=== PATIENT | male | born 1965 | race Caucasian/White ===

== ENCOUNTER → 2017-06-25 | Outpatient (CLI) | payer OTHER ==
[~2017-06-25] MED LIST: AMLODIPINE BESY10 MG; ASPIRIN81 M2; FISH OIL 1,2001 EAC4; FLOMAX0.4 MG PO; GLUCOTROL5 MG PO; LEXAPRO 10 MG T10 M2; PERCOCET 5-3251 EACH PO; PREDNISONE 20 M20 MG PO; PRINZIDE 20-121 EACH; VALIUM5 MG PO; VITCB500GO
== END ==
LOC: RAD 12:17
DX: R05 Cough (principal); R50.9 Fever, unspecified

== ENCOUNTER → 2018-12-30 | Outpatient (CLI) | payer OTHER | LOC: ULTRA 08:00 | DX: K76.0 Fatty (change of) liver, not elsewhere classified (principal) ==

== ENCOUNTER → 2019-03-03 | Outpatient (CLI) | payer OTHER | LOC: CAT 10:45 | DX: Z13.6 Encounter for screening for cardiovascular disorders (principal); E78.00 Pure hypercholesterolemia, unspecified; I25.10 Atherosclerotic heart disease of native coronary artery without angina pectoris ==

== ENCOUNTER → 2019-04-11 | Outpatient (CLI) | payer OTHER | LOC: CAT 04-08 09:52 → MRI 10:47 | DX: I65.23 Occlusion and stenosis of bilateral carotid arteries (principal); R79.89 Other specified abnormal findings of blood chemistry ==

== ENCOUNTER → 2019-07-03 | Outpatient (CLI) | payer OTHER ==
[~2019-07-03] VITALS: Ht 177.8 cm; Wt 136.0 kg
[~2019-07-03] MED LIST changes: +ALL DAY ALLERGY10 M3 PO; +LASIX 40 MG TAB40 MG PO; +NIFEDIPINE ER90 MG PO; +NITROSTAT0.4 M1 SUBLING; +PRINIVIL20 M1 PO; +SIMVASTATIN80 MG PO
[2019-07-03 08:18] VITALS: BP 161/82
[2019-07-03 08:32] LABS: HEMATOCRIT 46.6 % (42.0-52.0); HEMOGLOBIN 15.5 gm/dL (14.0-18.0); MCH 28.4 pg (26.0-34.0); MCHC 33.4 g/dL (28.0-37.0); MCV 85.1 fL (80.0-100.0); RBC 5.48 mil/uL (4.50-6.00); RDW 13.6 % (10.5-14.5)
[2019-07-03 08:39] LABS: CALCIUM 9.3 mg/dL (8.5-10.1); CREATININE 0.9 mg/dL (0.7-1.3); POTASSIUM 3.9 mmol/L (3.5-5.1)
--- NOTE | 2019-07-03 17:25 | EKG ---
[address] [address] ELECTROCARDIOGRAM REPORT Name: ALIZE ALEJANDRO [facility] #: [facility] [id number] Admission: 07/03/19 Attend Phys: Chava Huang Discharge: Date of : 65 Report #: [id number] THIS REPORT FOR: //name// [facility] Test Date: 2019-07-03 Test Time: 08:32:01 Pat Name: ALIZE ALEJANDRO Department: Room: Gender: M Telephone Clerks Supervisor: [place] : 1965 Requested By: Chava Huang Order Number: [id number] MD: Reggie Vega Measurements Intervals [place] Rate: 80 P: -16 RI: 175 QRS: -177 QRSD: 149 T: -10 QT: 429 QTc: 495 Interpretive Statements Sinus rhythm RBBB and LPFB Compared to ECG 02/08/2013 23:06:40 Left posterior fascicular block now present Right bundle-branch block now present Electronically Signed On 07-03-2019 17:24:35 PLANT TECHNICIAN by Reggie Vega [email or web address] <ELECTRONICALLY SIGNED> By: Reggie Vega MD 07/03/19 1724 Reggie Vega MD /EPI
--- NOTE | 2019-07-08 16:23 | CATHLAB ---
[facility] [address] [place] [address] INVASIVE PROCEDURE REPORT Name: ALIZE ALEJANDRO Room #: REG Jayden#: [id number] Admission: 07/03/19 Attend Phys: Chava Desai Discharge: Date of : 65 Report #: [id number] THIS REPORT FOR: //name// APPROVED REPORT Study performed: 07/03/2019 08:16:49 Patient Details Patient Status: Out-Patient Room #: The patient is a 53 year-old male Event Personnel Chava Huang Wet Mixer, Ale Esquivel RN RN, Jacqui Nicholas RTLucía Nicole David Monitor Procedures Performed Left Heart Cath w/or w/o Coronaries [id number] [facility], supervision of conscious sedation Indication Positive stress test, Chest pain Procedure Narrative The Right Groin^ was infiltrated with 1% Lidocaine subcutaneous anesthesia. A PINNACLE 4FR Sheath #[id number] sheath was inserted into the RFA^. Coronary angiography was performed using coronary diagnostic catheters. The right coronary system was accessed and visualized with a JR4 catheter. The left coronary system was accessed and visualized with a JL4 catheter. The left ventricle was accessed and visualized with a PIGTAILO catheter. Left ventricular/Aortic Valve gradient assessed via catheter pullback. Hemostasis was obtained with manual pressure following sheath removal without any complications. There was no hematoma. Intraoperative Conscious Sedation Sedation start time: 9.37 Case end Time: 10.23 Versed 3 mg Fluoro Time: 2.45 minutes Dose: DAP 5857.00 cGycm2 778 mGy Contrast Type and Amount: Omnipaque 45 ml Coronary Angiography The patient's coronary anatomy is right dominant. [facility] [address] [place] [address] INVASIVE PROCEDURE REPORT Name: ALIZE ALEJANDRO Room #: REG [facility]#: [id number] Admission: 07/03/19 Attend Phys: Chava Desai Discharge: Date of : 65 Report #: [id number] Diagnostic Cath Left Main Multiple origin and caliber bifurcates left anterior descending left circumflex. It is free of significant obstructive lesions LAD Moderate caliber type II vessel which courses in the anterior interventricular sulcus. 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 No high-grade lesions are identified as a gives rise to diagonal and septal branches. There are luminal irregularities noted Diagonal 1 Multiple moderate caliber vessel coursing the anterolateral wall free of high-grade disease Circumflex Large-caliber vessel courses in the AV groove posteriorly giving rise to a small first marginal branch the vessel then continues giving rise to a moderate lateral wall and 2 moderate size posterior wall marginal branches without high-grade lesions OM1 Small-caliber vessel with a high-grade lesions present OM2 Moderate caliber lateral wall vessel without significant stenosis noted as it courses towards the apex OM3 Small to moderate caliber vessel along with the OM for posterior wall branch without high-grade lesions Right Coronary Large-caliber dominant vessel courses in the AV groove. His rise in RV marginal branch and then there is mild irregularities present. The vessel then continues to the crux of the heart giving rise to posterior descending artery. Then continues on and terminates is small posterior wall branches and artery to the AV node noted R PDA Moderate caliber vessel without significant high-grade lesions noted Left Ventriculography Left Ventriculography was not performed. Hemodynamics The aortic pressure is 195/97 mmHg with a mean of 109 mmHg. The left ventricular pressure is 196/15 mmHg with a mean of mmHg. The left ventricular end diastolic pressure is 30 mmHg. There was no gradient across the aortic valve upon pullback. Pullback from the left ventricle to the aorta revealed no gradient across the aortic valve. Conclusion 1. Mild luminal irregularities present without significant [facility] [address] [place] [address] INVASIVE PROCEDURE REPORT Name: ALIZE ALEJANDRO Room #: REG [facility]#: [id number] Admission: 07/03/19 Attend Phys: Chava Desai Discharge: Date of : 65 Report #: [id number] obstructive coronary disease 2. Normal hemodynamics Recommendations Cardiac Risk Reduction Program Medical Therapy <ELECTRONICALLY SIGNED> By: Chava Huang MD 07/08/19 1623 162 162 Chava Huang MD /INF
== END | disposition home or self-care (01) ==
LOC: CATH 07:52
PROVIDERS: Internal Medicine
DX: R07.9 Chest pain, unspecified (principal); R94.39 Abnormal result of other cardiovascular function study; R93.1 Abnormal findings on diagnostic imaging of heart and coronary circulation; I42.9 Cardiomyopathy, unspecified; I11.0 Hypertensive heart disease with heart failure; I50.9 Heart failure, unspecified; E11.9 Type 2 diabetes mellitus without complications; E78.5 Hyperlipidemia, unspecified; E66.09 Other obesity due to excess calories; G47.33 Obstructive sleep apnea (adult) (pediatric); F17.220 Nicotine dependence, chewing tobacco, uncomplicated; Z98.890 Other specified postprocedural states; Z79.899 Other long term (current) drug therapy; Z87.442 Personal history of urinary calculi; Z79.82 Long term (current) use of aspirin

== ENCOUNTER → 2020-05-06 | Outpatient (CLI) | payer OTHER | LOC: LAB 11:37 | PROVIDERS: ATTEND Neuromusculoskeletal Medicine & OMM | DX: Z20.828 Contact with and (suspected) exposure to other viral communicable diseases (principal) ==